=== PATIENT | male | born 1930 | race Caucasian/White ===

== ENCOUNTER 2016-11-15 09:00 | Outpatient (CLI) | payer OTHER ==
[~2016-11-15 09:00] MED LIST: CARVEDILOL12.5 MG PO; CARVEDILOL3.125 MG PO; DIGOXIN0.125 MG PO; DILTIAZEM HCL180 M1 PO; LASIX20 MG PO; LIPITOR80 MG PO; LOSARTAN POTASS25 MG PO; POTASSIUM CHLO20 ME4 PO; PROTONIX40 MG PO; REGLAN10 MG PO; XARELTO15 MG PO
--- NOTE | 2016-11-16 09:38 | DIAGNOSTIC IMAGING REPORT ---
REFERRING PHYSICIAN/PROVIDER: [facility] [employer] INSTRUCTOR: Bhavani Tiwari MD PROCEDURE: Echocardiogram INDICATION: HEART MURMER Interpretation Summary Afib with controlled rate. Moderately dilated LV (6.5 cm in end diastole). Normal wall thickness; there is moderate-severe global hypokinesis. EF is 30-35%. Severe left atrial enlargement; mild RA enlargement. There is moderate-severe central MR in the setting of dilated annulus. There is mild aortic sclerosis; leaflets are moderately thickened and calcified. There is mild-moderate associated aortic regurgitation. Estimated PA systolic pressure is 24 mm Hg assuming RA pressure of 8 mm Hg. Compared to prior study performed 10/11/2013, on personal review LV is more dilated; CHAVA is up from 5.8 cm to 6.5 cm; LV is less dynamic; EF is down on personal review from 35-40% to 30-35%. Wall motion is now globally down; previously it was more focal with lateral and anterolateral hypokinesis. MR progressed from mild to moderate-severe Procedure: A two-dimensional transthoracic echocardiogram with color flow Doppler was performed. The patient was in atrial fibrillation with controlled ventricular rate during the exam. Left Ventricle: The left ventricle is moderately dilated. The ejection fraction is estimated to be 30-35%. There is moderate to severe global hypokinesis of the left ventricle. Right Ventricle: The right ventricle is normal in size, thickness and function. Atria: The left atrium is severely dilated. 5.3 cm LA dimension in end- systole on parasternal long axis view. The right atrium is mildly dilated. Mitral Valve: The mitral valve is normal. There is moderate to severe mitral regurgitation. EROA is 0.29 cm squared; RV is 51 ml. Aortic Valve: There is moderate aortic valve sclerosis. There is mild to moderate aortic regurgitation. Tricuspid Valve: The tricuspid valve is normal. There is mild tricuspid regurgitation. Pulmonic Valve: The pulmonic valve is not well visualized. There is a trace or physiologic amount of pulmonic regurgitation. Great Vessels: The aortic root is normal size. The IVC is dilated ( diameter is greater than 2.1 cm) yet it collapses greater than 50% with a sniff. This suggests a right atrial pressure of 8 mm Hg. Pericardium/ Pleura There is no pericardial effusion.
== END 2016-11-15 23:00 ==
LOC: US SRH 09:00
DX: R01.1 Cardiac murmur, unspecified (principal); I48.2 Chronic atrial fibrillation; I25.10 Atherosclerotic heart disease of native coronary artery without angina pectoris; K92.2 Gastrointestinal hemorrhage, unspecified; E78.5 Hyperlipidemia, unspecified
CPT/HCPCS: 90074; 90100; 92690